=== PATIENT | female | born 1975 | race African-American/Black ===

== ENCOUNTER 2019-04-19 15:38 | Observation (INO) ==
[2019-04-19 16:38] LABS: Basophils % 0.4 % (0.0-0.8); Eosinophils # 0.1 10*3/uL (0.0-0.87); Eosinophils % 0.8 % (0.00-10.9); Hematocrit 33.3 VOL% (35.7-47.0); Hemoglobin 10.3 GM/DL (12.0-16.0); Immature Granulocytes % 0.3 %; Immature Granulocytes Absolute 0.02 #; Lymphocytes # 2.7 10*3/uL (1.4-4.0); Lymphocytes % 38.2 % (21.3-54.2); Mean Corpuscular HGB Conc 30.9 GM/DL (32-36); Mean Corpuscular Volume 86.9 FL (87-102); Mean Platelet Volume 11.9 FL (9.6-12.0); Monocytes % 8.3 % (1.7-12.7); Platelet Count 358 T/CUMM (130-400); Red Blood Count 3.83 MC/CUMM (3.8-5.5); Red Cell Distribution Width 13.7 % (9.3-17.3); White Blood Count 7.1 T/CUMM (4-12)
[2019-04-19 16:56] LABS: Alanine Aminotransferase 14 U/L (13-56); Albumin 4.2 G/DL (3.4-5.0); Alkaline Phosphatase 101 U/L (45-117); Aspartate Amino Transferase 15 U/L (0-37); Blood Urea Nitrogen 10 MG/DL (7-18); Calcium 9.9 MG/DL (8.5-10.1); Estimated Glom Filtration Rate 112 ML/MIN; Glucose 108 MG/DL (74-106); Osmolality,Calculated 282.1 MOS/KG (273-304); Total Protein 9.5 G/DL (6.4-8.3); Troponin I < 0.015 NG/ML (0.00-0.045)
[2019-04-19] MEDS ORDERED: hydrALAZINE 20 MG/1 ML VIAL IV STA ×2 (19:34→20:44)
[2019-04-19] MEDS ORDERED: NITROGLYCERIN 2% OINT 1 INCH/GM PACK TOP STA (20:44)
[2019-04-19] MEDS ORDERED: MORPHINE 4 MG/1 ML VIAL IV STA (20:44)
[2019-04-19] MEDS ORDERED: ASPIRIN 325 MG TABLET PO STA (20:44)
[2019-04-19] MEDS ORDERED: ONDANSETRON 4 MG/2 ML VIAL IV STA ×2 (20:44→23:12)
[2019-04-20] MEDS ORDERED: ONDANSETRON 4 MG/2 ML VIAL IV STA (00:48)
[2019-04-20] MEDS ORDERED: PANTOPRAZOLE 40 MG VIAL IV STA (00:48)
[2019-04-20] MEDS ORDERED: MORPHINE 4 MG/1 ML VIAL IV STA (00:48)
[2019-04-20] MEDS: SODIUM CHLORIDE 0.9% 1,000 ML IV SCH ×2 (00:55→10:25)
[2019-04-20] MEDS ORDERED: LISINOPRIL 10 MG TABLET PO SCH (08:00)
[2019-04-20 08:15] LABS: HDL Cholesterol 68 MG/DL (40-60); Risk Ratio 2.72; Thyroid Stimulating Hormone 0.311 uIU/ml (0.358-3.74); Triglycerides 61 MG/DL (2-150); Troponin I < 0.015 NG/ML (0.00-0.045); VLDL CHOLESTEROL 12.2 MG/DL
[2019-04-20] MEDS ORDERED: ASPIRIN EC 325 MG TABLET PO SCH (09:00)
[2019-04-20] MEDS ORDERED: metFORMIN 500 MG TABLET PO SCH (09:00)
[2019-04-20] MEDS ORDERED: ENOXAPARIN 40 MG/0.4 ML SYRINGE SUBCUT SCH (09:00)
[2019-04-20] MEDS ORDERED: amLODIPine 10 MG TABLET PO SCH (09:00)
[2019-04-20] MEDS ORDERED: ONDANSETRON 4 MG/2 ML VIAL IV ONE (10:48)
[2019-04-20] MEDS ORDERED: LISINOPRIL 20 MG TABLET PO SCH (11:26)
[2019-04-20 15:36] VITALS: BP 143/72
[2019-04-20] MEDS ORDERED: ACETAMINOPHEN 325 MG TABLET PO ONE (16:05)
[2019-04-20] MEDS ORDERED: SIMVASTATIN 10 MG TABLET PO SCH (21:00)
== END 2019-04-20 17:41 | disposition home or self-care (01) ==
LOC: N.ED 15:38 → N.EDINP 15:38 → SUATTDRO 23:54 → N.TELES 04-20 01:08
PROVIDERS: ATTEND Internal Medicine Cardiovascular Disease